=== PATIENT | female | born 1990 | race African-American/Black ===

== ENCOUNTER 2018-06-19 01:11 | Inpatient (IN) ==
--- NOTE | 2018-06-19 02:01 | ED ---
History of Present Illness Primary Care Physician: UNKNOWN History of Present Illness: Patient's been followed in my office for care which was normal except for abnormal 1 hour sugar test. She comes in in active labor Weeks Gestation:: 39 Para: 1 : 2 Review of Systems Feeling well with no complaints except for the labor pains PMFSH - Medical History Medical History: Medical History (Last Updated 06/19/18 @ 01:58 by Lee Curran MD) Anemia affecting Anemia affecting - Surgical History Surgical History: Surgical History (Last Updated 06/19/18 @ 01:59 by Lee Curran MD) H/O hemorrhoidectomy H/O hemorrhoidectomy - Family History Family History: Family History (Last Updated 06/19/18 @ 01:59 by Lee Curran MD) Other Prostate cancer - Social History I have reviewed the patient's Social History: Yes - Tobacco History Second Hand Smoke Exposure: No Tobacco Use In Past 30 Days: No Medications and Allergies Allergies Allergy/AdvReac Type Severity Reaction Status Date / Time No Known Allergies Allergy Unknown none Uncoded 06/19/18 01:57 Exam Vital signs: Vital Signs 06/19/18 01:34 Temperature 98.8 F Pulse Rate 63 Respiratory Rate 18 Blood Pressure 119/67 - Constitutional mild distress, cooperative - Routine HEENT Exam Head: Present: normocephalic, atraumatic - Routine Neck Exam Present: supple - Routine Respiratory Exam Present: CTA bilaterally - Routine Cardiovascular Exam Present: RRR, S1, S2 - Routine Abdominal Exam Present: soft, normoactive bowel sounds - Routine Extremities Exam Comments: No clubbing cyanosis or edema Assessment and Plan - Plan 1. Intrauterine at 39 weeks and 5 days 2. Active labor 3. Negative GBS 4. Abnormal 1 hour sugar test with a normal 3-hour OGTT 5. Anemia we will go ahead and check her blood count now Discharge Plan - Physicians Team ED Provider: Ramirez Patterson Primary Care Provider: UNKNOWN, - Discharge Instructions Print Language: Frisian
[2018-06-19] MEDS ORDERED: Sod Chloride 0.9% Inj 1,000 ML IV.CONT PRN (02:24)
[2018-06-19] MEDS ORDERED: Naloxone Inj 0.4 MG/ML Vial IV.PUSH PRN ×2 (02:24→03:52)
[2018-06-19] MEDS ORDERED: Sodium Chlor 0.9% Inj 500 ML IV.SIG PRN (02:24)
[2018-06-19] MEDS ORDERED: Oxytocin 30 Units/500ml Premix 30 UNITS/500 ML BAG IV.SIG ONE (02:24)
[2018-06-19] MEDS ORDERED: fentaNYL Citrate Inj 100 MCG/2 ML Ampul IV.PUSH PRN ×2 (02:24)
[2018-06-19] MEDS ORDERED: Citric Acid/Sodium Citrate Liq 30 ML UDC PO SCH (02:30)
[2018-06-19 03:22] LABS: Baso % (Auto) 0.1 % (0.0-2.0); Eos % (Auto) 0.3 % (0.0-4.0); Lymph # (Auto) 2.3 th/mm3 (1.0-4.8); Lymph % (Auto) 25.9 % (9.0-44.0); Mean Corpuscular HGB Conc 35.4 % (32.0-36.0); Mean Corpuscular Hemoglobin 34.6 pg (27.0-34.0); Mean Corpuscular Volume 97.6 fL (80.0-100.0); Mean Platelet Volume 9.5 fL (7.0-11.0); Mono # (Auto) 1.1 th/mm3 (0.0-0.9); Mono % (Auto) 12.8 % (0.0-8.0); Neut # (Auto) 5.4 th/mm3 (1.8-7.7); Neut % (Auto) 60.9 % (16.0-70.0); Platelet Count 237 th/mm3 (150-450); Red Blood Count 3.49 mil/mm3 (4.00-5.30); Red Cell Distribution Width 12.5 % (11.6-17.2); White Blood Count 8.9 th/mm3 (4.0-11.0)
[2018-06-19 03:31] LABS: Amphetamine Urine With Conf Neg (Neg); Benzodiazepine Urine With Conf Neg (Neg)
[2018-06-19] MEDS ORDERED: Lidocaine 1% Inj 50 ML Vial ONE (03:39)
[2018-06-19 03:42] LABS: Bilirubin,Urine Negative (Negative); Clarity,Urine Clear (Clear); Color,Urine Yellow (Yellw/Straw); Glucose,Urine (UA) Negative (Negative); Leukocyte Esterase,Urine Negative (Negative); Mucus,Urine Few /lpf (Occasional); Nitrite,Urine Negative (Negative); Specific Gravity,Urine 1.014 (1.002-1.035)
[2018-06-19] MEDS ORDERED: Benzocaine 20% Top Spray 60 ML Can TOPICAL PRN (03:52)
[2018-06-19] MEDS ORDERED: Bisacodyl 10 MG Supp RECTAL PRN (03:52)
[2018-06-19] MEDS ORDERED: Acetaminophen 325 MG Tablet PO PRN (03:52)
[2018-06-19] MEDS ORDERED: Zolpidem Tartrate 5 MG Tablet PO PRN (03:52)
[2018-06-19] MEDS ORDERED: Oxytocin 30 Units/500ml Premix 30 UNITS/500 ML BAG IV.CONT PRN (03:52)
[2018-06-19] MEDS ORDERED: Witch Hazel 50%/Glyderin 12.5% 40 Pad Jar RECTAL PRN (03:52)
--- NOTE | 2018-06-19 03:54 | P.OBDELI ---
Weeks Gestation: 39 Anesthesia: None Episiotomy: none Vaginal Delivery: Normal Presentation: Occiput anterior Nuchal Cord: None Delayed Cord Clamping (45 sec): Yes Placenta: Spontaneous delivery Laceration: None Estimated blood loss (mL): 100 Infant: Male Infant Male A Infant Delivery Date: 06/19/18 Infant Delivery Time: 03:42 Weight: 3.255 kg score (1 min): 9 score (5 min): 9
[2018-06-19] MEDS: Senna/Docusate Sodium 8.6/50 MG Tablet PO SCH (10:04)
--- NOTE | 2018-06-19 14:02 | P.HPOB ---
History of Present Illness Primary Care Physician: UNKNOWN History of Present Illness: Patient's been followed in my office for care which was normal except for abnormal 1 hour sugar test. She comes in in active laborOB - ED Note Patient Name: Arabella Albert Date of : 86 Patient Status: Inpatient Attending Provider: Lee Curran Date: 06/19/18 01:55 Initialization Date: 06/19/18 01:55 History of Present Illness Primary Care Physician: UNKNOWN History of Present Illness: Patient's been followed in my office for care which was normal except for abnormal 1 hour sugar test. She comes in in active labor Weeks Gestation:: 39 Para: 1 : 2 Review of Systems Feeling well with no complaints except for the labor pains PMFSH - Medical History Medical History: Medical History (Last Updated 06/19/18 @ 01:58 by Lee Curran MD) Anemia affecting Anemia affecting - Surgical History Surgical History: Surgical History (Last Updated 06/19/18 @ 01:59 by Lee Curran MD) H/O hemorrhoidectomy H/O hemorrhoidectomy - Family History Family History: Family History (Last Updated 06/19/18 @ 01:59 by Lee Curran MD) Other Prostate cancer - Social History I have reviewed the patient's Social History: Yes - Tobacco History Second Hand Smoke Exposure: No Tobacco Use In Past 30 Days: No Medications and Allergies Allergies Allergy/AdvReac Type Severity Reaction Status Date / Time No Known Allergies Allergy Unknown none Uncoded 06/19/18 01:57 Exam Vital signs: Vital Signs 06/19/18 01:34 Temperature 98.8 F Pulse Rate 63 Respiratory Rate 18 Blood Pressure 119/67 - Constitutional mild distress, cooperative - Routine HEENT Exam Head: Present: normocephalic, atraumatic - Routine Neck Exam Present: supple - Routine Respiratory Exam Present: CTA bilaterally - Routine Cardiovascular Exam Present: RRR, S1, S2 - Routine Abdominal Exam Present: soft, normoactive bowel sounds - Routine Extremities Exam Comments: No clubbing cyanosis or edema Assessment and Plan - Plan 1. Intrauterine at 39 weeks and 5 days 2. Active labor 3. Negative GBS 4. Abnormal 1 hour sugar test with a normal 3-hour OGTT 5. Anemia we will go ahead and check her blood count now Discharge Plan - Physicians Team ED Provider: Ramirez Patterson Primary Care Provider: UNKNOWN, - Discharge Instructions Print Language: Kenyan Weeks Gestation:: 39 - Inpatient Certification I certify that the inpatient services were ordered in accordance with Medicare regulations governing the order. This includes certification that hospital inpatient services are reasonable and necessary and in the case of services not specified as inpatient-only under 42 CFR 419.22(n), that they are appropriately provided as inpatient services in accordance to with the 2-midnight benchmark under 43 CFR 412.3(e) Estimated Total Length of Stay (Days): 2 Plans for Post Hospital Care: Home [facility] - Medical History Medical History: Medical History (Last Updated 06/19/18 @ 01:58 by Lee Curran MD) Anemia affecting Anemia affecting - Surgical History Surgical History: Surgical History (Last Updated 06/19/18 @ 01:59 by Lee Curran MD) H/O hemorrhoidectomy H/O hemorrhoidectomy - Family History Family History: Family History (Last Updated 06/19/18 @ 01:59 by Lee Curran MD) Other Prostate cancer - Tobacco History Second Hand Smoke Exposure: No Tobacco Use In Past 30 Days: No Medications and Allergies Active Medications: Active Medications Acetaminophen (Tylenol) 650 mg PO Q4H PRN PRN Reason: PAIN SCALE 1 TO 2 Al Hydroxide/Mg Hydroxide (Milk Of Magnesia Liq) 30 ml PO Q12H PRN PRN Reason: Mild Constipation Benzocaine (Americaine 20% Top [place]) 1 spray TOPICAL Q4H PRN PRN Reason: For Perineum Discomfort Bisacodyl (Dulcolax Supp) 10 mg RECTAL DAILY PRN PRN Reason: SEVERE CONSITIPATION Citric Acid/Sodium Citrate (Sodium Citrate/Citric Acid Liq) 30 ml PO [employer] [place] Stop: 06/23/18 02:29 Diphtheria/Pertussis/Tetanus Vacc (Boostrix Vaccine Inj) 0.5 ml IM .ONCE ONE Stop: 06/19/18 16:01 Fentanyl Citrate (Fentanyl Inj) 50 mcg IV.PUSH Q1H PRN PRN Reason: Pain Scale 3 - 5 Last Admin: 06/19/18 03:13 Dose: 50 mcg Fentanyl Citrate (Fentanyl Inj) 100 mcg IV.PUSH Q1H PRN PRN Reason: PAIN SCALE 6 TO 10 Lactated Ringer's (Lr 1000 Ml Inj) 1,000 mls @ 125 mls/hr IV.CONT .Q8H MER[place]ED[place] Last Admin: 06/19/18 04:18 Dose: 125 mls/hr Lactated Ringer's (Lr 1000 Ml Inj) 1,000 mls @ 3,000 mls/hr IV.SIG UNSCH PRN PRN Reason: compromise or epidural Last Admin: 06/19/18 03:15 Dose: 3,000 mls/hr Sodium Chloride (Ns Inj) 500 mls @ 1,000 mls/hr IV.SIG UNSCH PRN PRN Reason: SEE LABEL COMMENTS Sodium Chloride (Ns Inj) 1,000 mls @ 100 mls/hr IV.CONT .Q10H PRN PRN Reason: SEE LABEL COMMENTS Oxytocin (Pitocin 30 Units/Ns 500 Ml Premix) 30 units in 500 mls @ 100 mls/hr IV.CONT UNSCH PRN PRN Reason: Heavy bleeding Ibuprofen (Motrin) 800 mg PO Q8H PRN PRN Reason: For Cramping Last Admin: 06/19/18 13:02 Dose: 800 mg Lactulose (Lactulose Liq) 30 ml PO DAILY PRN PRN Reason: SEVERE CONSITIPATION Lidocaine HCl (Xylocaine 1% Inj) 10 ml INFILTRATN PRN PRN PRN Reason: For episiotomy repair Stop: 06/21/18 02:23 Lidocaine HCl (Xylocaine 1% Inj) 0.1 ml I-DERMAL PRN PRN PRN Reason: For IV start Stop: 06/22/18 02:23 Measles/Mumps/Rubella Vaccine Live (M-M-R Ii Vaccine Inj) 0.5 ml SQ .ONCE ONE Stop: 06/19/18 16:01 Mineral Oil (Muri-Lube Oil) 10 ml TOPICAL PRN PRN PRN Reason: PRN perineal massage Naloxone HCl (Narcan Inj) 0.1 mg IV.PUSH Q2M PRN PRN Reason: for opiate reversal Naloxone HCl (Narcan Inj) 0.1 mg IV.PUSH Q2M PRN PRN Reason: for opiate reversal Ondansetron HCl (Zofran Inj) 4 mg IV.PUSH Q6H PRN PRN Reason: NAUSEA OR VOMITING Ondansetron HCl (Zofran Odt) 4 mg PO Q6H PRN PRN Reason: NAUSEA OR VOMITING Oxycodone/Acetaminophen (Percocet 5/325 Mg) 1 tab PO Q4H PRN PRN Reason: PAIN SCALE 3 TO 5 Senna/Docusate Sodium (Melisa-Colace) 1 tab PO BID [place] Last Admin: 06/19/18 10:04 Dose: 1 tab Sennosides (Senokot) 17.2 mg PO Q12H PRN PRN Reason: Moderate Constipation Sodium Chloride (Ns Flush) 2 ml IV.FLUSH BID [place] Sodium Chloride (Ns Flush) 2 ml IV.FLUSH PRN PRN PRN Reason: FLUSH AFTER USING IV ACCESS Witch Anusha/Glycerin (Tucks Pads) 1 applicatio RECTAL QID PRN PRN Reason: HEMORRHOIDS Last Admin: 06/19/18 07:38 Dose: 1 applicatio Zolpidem Tartrate (Ambien) 5 mg PO HS PRN PRN Reason: SLEEP Allergies Allergy/AdvReac Type Severity Reaction Status Date / Time No Known Allergies Allergy Unknown none Uncoded 06/19/18 01:57 Exam Vital signs: Vital Signs 06/19/18 01:34 06/19/18 03:22 06/19/18 04:00 Temperature 98.8 F Pulse Rate 63 84 74 Respiratory Rate 18 18 Blood Pressure 119/67 115/50 L 113/69 06/19/18 04:15 06/19/18 04:25 06/19/18 04:30 Temperature 98.2 F Pulse Rate 57 L 56 L 59 L Respiratory Rate 18 16 16 Blood Pressure 106/66 112/69 107/64 06/19/18 04:45 06/19/18 05:15 06/19/18 05:27 Temperature Pulse Rate 57 L 58 L Respiratory Rate 16 16 Blood Pressure 106/63 98/58 L 06/19/18 05:45 06/19/18 07:56 Temperature 99.0 F 98.7 F Pulse Rate 65 83 Respiratory Rate 17 20 Blood Pressure 101/57 L 104/57 L Intake & Output 06/18/18 06/19/18 06/19/18 18:59 06:59 18:59 Weight 71.668 kg Results - Labs CBC & Chem 7: 06/19/18 02:20 Labs: Laboratory Results - last 24 hr 06/19/18 06/19/18 06/19/18 01:30 01:30 02:20 WBC 8.9 RBC 3.49 L Hgb 12.0 Hct 34.0 L MCV 97.6 MCH 34.6 H MCHC 35.4 RDW 12.5 Plt Count 237 MPV 9.5 Neut % (Auto) 60.9 Lymph % (Auto) 25.9 Falls % (Auto) 12.8 H Eos % (Auto) 0.3 Baso % (Auto) 0.1 Neut # (Auto) 5.4 Lymph # (Auto) 2.3 Falls # (Auto) 1.1 H Eos # (Auto) 0.0 Baso # (Auto) 0.0 WBC Differential . Differential Comment Auto diff final Urine Color Yellow Urine Clarity Clear Urine pH 7.0 Ur Specific [place] 1.014 Urine Protein Negative Urine Glucose (UA) Negative Urine Ketones Negative Urine Occult Blood Small H Urine Nitrate Negative Urine Bilirubin Negative Urine Urobilinogen 2.0 H Ur Leukocyte Esterase Negative Urine RBC 1 Urine WBC 1 Urine Mucus Few H Micro UA Comment Culture not ind Ur Microscopic Review Not Reportable Urine Culture Comments Culture not ind Urine Opiates Screen Neg Ur Barbiturates Screen Neg Ur Amphetamine Screen Neg U Benzodiazepines Scrn Neg Urine Cocaine Screen Neg U Cannabinoids Screen Neg Blood Type Blood Type Recheck 06/19/18 02:20 WBC RBC Hgb Hct MCV MCH MCHC RDW Plt Count MPV Neut % (Auto) Lymph % (Auto) Falls % (Auto) Eos % (Auto) Baso % (Auto) Neut # (Auto) Lymph # (Auto) Falls # (Auto) Eos # (Auto) Baso # (Auto) WBC Differential Differential Comment Urine Color Urine Clarity Urine pH Ur Specific [place] Urine Protein Urine Glucose (UA) Urine Ketones Urine Occult Blood Urine Nitrate Urine Bilirubin Urine Urobilinogen Ur Leukocyte Esterase Urine RBC Urine WBC Urine Mucus Micro UA Comment Ur Microscopic Review Urine Culture Comments Urine Opiates Screen Ur Barbiturates Screen Ur Amphetamine Screen U Benzodiazepines Scrn Urine Cocaine Screen U Cannabinoids Screen Blood Type O Positive Blood Type Recheck Not needed Caprini VTE Risk Assessment Caprini VTE Risk Assessment: No/Low Risk (score <= 1) Caprini Risk Assessment Model: Point Value = 1 Point Value = 2 Point Value = 3 Point Value = 5 Age 41-60 Minor surgery BMI > 25 kg/m2 Swollen legs Varicose veins or History of unexplained or recurrent spontaneous Oral contraceptives or hormone replacement Sepsis (< 1 month) Serious lung disease, including pneumonia (< 1 month) Abnormal pulmonary function Acute myocardial infarction Congestive heart failure (< 1 month) History of inflammatory bowel disease Medical patient at bed rest Age 61-74 Arthroscopic surgery Major open surgery (> 45 min) Laparoscopic surgery (> 45 min) Malignancy Confined to bed (> 72 hours) Immobilizing plaster cast Central venous access Age >= 75 History of VTE Family history of VTE Factor V Leiden Prothrombin [id number] Lupus anticoagulant Anticardiolipin antibodies Elevated serum homocysteine Heparin-induced thrombocytopenia Other congenital or acquired thrombophilia Stroke (< 1 month) Elective arthroplasty Hip, pelvis, or leg fracture Acute spinal cord injury (< 1 month) Prophylaxis Regimen: Total Risk Factor Score Risk Level Prophylaxis Regimen 0-1 Low Early ambulation 2 Moderate Order ONE of the following: *Sequential Compression Device (SCD) *Heparin 5000 units SQ BID 3-4 Higher Order ONE of the following medications: *Heparin 5000 units SQ TID *Enoxaparin/Lovenox 40 mg SQ daily (WT < 150 kg, CrCl > 30 mL/min) *Enoxaparin/Lovenox 30 mg SQ daily (WT < 150 kg, CrCl > 10-29 mL/min) *Enoxaparin/Lovenox 30 mg SQ BID (WT < 150 kg, CrCl > 30 mL/min) AND/OR *Sequential Compression Device (SCD) 5 or more Highest Order ONE of the following medications: *Heparin 5000 units SQ TID (Preferred with Epidurals) *Enoxaparin/Lovenox 40 mg SQ daily (WT < 150 kg, CrCl > 30 mL/min) *Enoxaparin/Lovenox 30 mg SQ daily (WT < 150 kg, CrCl > 10-29 mL/min) *Enoxaparin/Lovenox 30 mg SQ BID (WT < 150 kg, CrCl > 30 mL/min) AND *Sequential Compression Device (SCD) Assessment and Plan - Plan 1. Intrauterine at 39 weeks and 5 days 2. Active labor 3. Negative GBS 4. Abnormal 1 hour sugar test with a normal 3-hour OGTT 5. Anemia we will go ahead and check her blood count now
[2018-06-19] MEDS ORDERED: Measles/Mumps/Rubella Vaccine Inj 0.5 ML Vial SQ ONE (16:00)
[2018-06-19] MEDS ORDERED: Diphtheria/Tetanus/Pertussis Vaccine Inj 0.5 ML Syringe IM ONE (16:00)
[2018-06-19 21:24] VITALS: RESP 18
[2018-06-20] MEDS: Senna/Docusate Sodium 8.6/50 MG Tablet PO SCH ×3 (09:58→10:00)
--- NOTE | 2018-06-20 17:36 | P.PNOB ---
Subjective Post day: 1 Interval history: Doing well Pain is well controlled Baby is doing great. Objective Vital Signs/I&O: Vital Signs 06/19/18 19:50 06/20/18 09:15 06/20/18 16:00 Temperature 98.5 F 98.6 F Pulse Rate 71 75 Respiratory Rate 18 18 Blood Pressure 113/72 112/62 127/76 Result Diagrams: 06/19/18 02:20 Objective Remarks: GENERAL: Well-nourished, well-developed patient. CARDIOVASCULAR: Regular rate and rhythm without murmurs, gallops, or rubs. RESPIRATORY: Breath sounds equal bilaterally. No accessory muscle use. ABDOMEN/GI: Abdomen soft, non-tender. Fundus: Firm, non-tender at umbilicus. GENITOURINARY: Light to moderate bleeding. EXTREMITIES: No cyanosis or edema, non-tender, without signs of DVT. Medications and IVs: Active Medications Acetaminophen (Tylenol) 650 mg PO Q4H PRN PRN Reason: PAIN SCALE 1 TO 2 Al Hydroxide/Mg Hydroxide (Milk Of Magnesia Liq) 30 ml PO Q12H PRN PRN Reason: Mild Constipation Benzocaine (Americaine 20% Top [place]) 1 spray TOPICAL Q4H PRN PRN Reason: For Perineum Discomfort Bisacodyl (Dulcolax Supp) 10 mg RECTAL DAILY PRN PRN Reason: SEVERE CONSITIPATION Citric Acid/Sodium Citrate (Sodium Citrate/Citric Acid Liq) 30 ml PO PROFESSIONAL CASTER ON LICENSE OF [facility] Stop: 06/23/18 02:29 Fentanyl Citrate (Fentanyl Inj) 50 mcg IV.PUSH Q1H PRN PRN Reason: Pain Scale 3 - 5 Last Admin: 06/19/18 03:13 Dose: 50 mcg Fentanyl Citrate (Fentanyl Inj) 100 mcg IV.PUSH Q1H PRN PRN Reason: PAIN SCALE 6 TO 10 Lactated Ringer's (Lr 1000 Ml Inj) 1,000 mls @ 125 mls/hr IV.CONT .Q8H ON LICENSE OF [facility] Last Admin: 06/19/18 04:18 Dose: 125 mls/hr Lactated Ringer's (Lr 1000 Ml Inj) 1,000 mls @ 3,000 mls/hr IV.SIG UNSCH PRN PRN Reason: compromise or epidural Last Admin: 06/19/18 03:15 Dose: 3,000 mls/hr Sodium Chloride (Ns Inj) 500 mls @ 1,000 mls/hr IV.SIG UNSCH PRN PRN Reason: SEE LABEL COMMENTS Sodium Chloride (Ns Inj) 1,000 mls @ 100 mls/hr IV.CONT .Q10H PRN PRN Reason: SEE LABEL COMMENTS Oxytocin (Pitocin 30 Units/Ns 500 Ml Premix) 30 units in 500 mls @ 100 mls/hr IV.CONT UNSCH PRN PRN Reason: Heavy bleeding Ibuprofen (Motrin) 800 mg PO Q8H PRN PRN Reason: For Cramping Last Admin: 06/20/18 09:57 Dose: 800 mg Lactulose (Lactulose Liq) 30 ml PO DAILY PRN PRN Reason: SEVERE CONSITIPATION Lidocaine HCl (Xylocaine 1% Inj) 10 ml INFILTRATN PRN PRN PRN Reason: For episiotomy repair Stop: 06/21/18 02:23 Lidocaine HCl (Xylocaine 1% Inj) 0.1 ml I-DERMAL PRN PRN PRN Reason: For IV start Stop: 06/22/18 02:23 Mineral Oil (Muri-Lube Oil) 10 ml TOPICAL PRN PRN PRN Reason: PRN perineal massage Naloxone HCl (Narcan Inj) 0.1 mg IV.PUSH Q2M PRN PRN Reason: for opiate reversal Naloxone HCl (Narcan Inj) 0.1 mg IV.PUSH Q2M PRN PRN Reason: for opiate reversal Ondansetron HCl (Zofran Inj) 4 mg IV.PUSH Q6H PRN PRN Reason: NAUSEA OR VOMITING Ondansetron HCl (Zofran Odt) 4 mg PO Q6H PRN PRN Reason: NAUSEA OR VOMITING Oxycodone/Acetaminophen (Percocet 5/325 Mg) 1 tab PO Q4H PRN PRN Reason: PAIN SCALE 3 TO 5 Senna/Docusate Sodium (Melisa-Colace) 1 tab PO BID [place]CED[place] Last Admin: 06/20/18 10:00 Dose: 1 tab Sennosides (Senokot) 17.2 mg PO Q12H PRN PRN Reason: Moderate Constipation Sodium Chloride (Ns Flush) 2 ml IV.FLUSH BID [place] Sodium Chloride (Ns Flush) 2 ml IV.FLUSH PRN PRN PRN Reason: FLUSH AFTER USING IV ACCESS Witch [place]/Glycerin (Tucks Pads) 1 applicatio RECTAL QID PRN PRN Reason: HEMORRHOIDS Last Admin: 06/19/18 07:38 Dose: 1 applicatio Zolpidem Tartrate (Ambien) 5 mg PO HS PRN PRN Reason: SLEEP Assessment and Plan - Plan 1. PPD #1 2. Anemia will start fe soon. 3. D/C home soon.
[2018-06-20 18:40] VITALS: PULSE 72; TEMP 98.4
[2018-06-20 18:41] VITALS: BP 127/72
== END 2018-06-20 18:33 | disposition home or self-care (01) ==
LOC: HOBED 01:11 → H2E 01:58 → H1EA 05:57
PROVIDERS: ADMIT Obstetrics & Gynecology; ATTEND Obstetrics & Gynecology